=== PATIENT | female | born 1955 | race Caucasian/White ===

== ENCOUNTER → 2019-08-28 | Outpatient (CLI) | payer OTHER ==
--- NOTE | 2019-08-28 13:16 | RAD ---
EXAM: Paranasal sinuses, single view. HISTORY: Sinusitis. COMPARISON: None. FINDINGS: A single view of the paranasal sinuses is obtained. There is no sinus opacification or air-fluid level. There is no significant nasal septal deviation. IMPRESSION: No radiographic evidence of acute sinusitis. Electronically signed by: Isi Angulo MD (08/28/2019 1:13 PM) [facility]
--- NOTE | 2019-08-28 13:17 | RAD ---
EXAM: Chest, 2 views. HISTORY: Shortness of air. COMPARISON: 08/03/2019. FINDINGS: 2 views of chest are obtained. There are moderate right and small left pleural effusions. There is right middle and lower lobe compression atelectasis or consolidated infiltrate. There is postoperative change involving the right breast and axilla. There is no pneumothorax. There is a small circumscribed nodule overlying the left lower lobe, possibly due to a nipple shadow. The heart is normal in size. IMPRESSION: 1. Moderate right and small left pleural effusions with suspected right middle and lower lobe compressive atelectasis or consolidated infiltrate. 2. Small nodule overlying the left lower lobe. The absence of this finding on the prior exam and the nodule location favor artifact due to a nipple shadow. Electronically signed by: Isi Angulo MD (08/28/2019 1:15 PM) [place] [id number]
== END | disposition home or self-care (01) ==
LOC: DXRAD 11:17
PROVIDERS: ATTEND Internal Medicine
DX: J90 Pleural effusion, not elsewhere classified (principal); R91.1 Solitary pulmonary nodule; J44.9 Chronic obstructive pulmonary disease, unspecified; J01.90 Acute sinusitis, unspecified
CPT/HCPCS: 70210; 71046

== ENCOUNTER → 2019-09-17 | Outpatient (CLI) | payer OTHER ==
--- NOTE | 2019-09-17 15:41 | RAD ---
CT CHEST WO CONTRAST Indication: Pleural effusion, shortness of air, history of lymphoma and breast cancer Technique: CT imaging was performed of the , multiplanar reconstruction images submitted. One or more of the following individualized dose reduction techniques were utilized for this examination: 1. Automated exposure control 2. Adjustment of the mA and/or kV according to patient size 3. Use of iterative reconstruction technique. Comparison: None Findings: There is moderate size, mostly dependent, right pleural effusion, internal density measurements of about 7 Hounsfield units. There is some extent anteriorly near the lung bases and also near apex. There is bronchiectasis of the upper lobes bilaterally near the apices, adjacent mild consolidation extending to the pleural surface. On the left, this area of density measures about 1 cm x 3 cm in axial oblique dimensions, likely smaller on the right although difficult to characterize given the adjacent effusion. There is very small left pleural effusion. There is a small quantity of pericardial fluid.. There is fairly prominent coronary calcification. Thoracic aortic caliber is within limits, some scattered calcified plaque present. There is a precarinal node about 0.9 cm short axis dimension, considered upper limits of normal. There is a 1 cm left adrenal nodule, density measurements of adenoma -1 Hounsfield units. There has been right mastectomy. There is heterogeneity of the bones, areas of scattered sclerosis with mixed lucency such as of the sternum, also of the T4 vertebral body. There is a small lytic focus of the T8 vertebral body too small to characterize 0.5 cm. There is a small 0.2 cm left upper lobe pulmonary nodule image 51 series 2. There is 0.4 cm left lower lobe pulmonary nodule image 41 series 2. There is 0.3 cm right middle lobe nodule image 39 series 2. There is 0.5 cm right lower lobe nodule image 38 series 2. IMPRESSION: 1. There is moderate, mostly dependent right pleural effusion, minimal extent anteriorly near the apex and base. There is very small left pleural effusion. 2. There are foci of peripheral density about areas of bronchiectasis of the upper lobes near the apices bilaterally, left greater than right. Findings may be component of more chronic fibrotic change and infiltrates although 3 month follow-up or PET/CT is advised as per revised Fleischner guidelines. There are also a a few other small pulmonary nodules as stated.. 3. There is some heterogeneity of the bones most notable of the T4 vertebral body and sternum, underlying marrow replacing process such as metastatic disease not excluded. 4. There is fairly prominent coronary calcification. Electronically signed by: Hood Mays MD (09/17/2019 3:38 PM) [facility]
== END | disposition home or self-care (01) ==
LOC: CT 09:21
PROVIDERS: ATTEND Internal Medicine
DX: J91.8 Pleural effusion in other conditions classified elsewhere (principal); J47.9 Bronchiectasis, uncomplicated; R91.8 Other nonspecific abnormal finding of lung field; I25.10 Atherosclerotic heart disease of native coronary artery without angina pectoris; Z90.11 Acquired absence of right breast and nipple; Z85.3 Personal history of malignant neoplasm of breast
CPT/HCPCS: 71250

== ENCOUNTER → 2021-05-12 | Outpatient (CLI) | payer MEDICARE ==
--- NOTE | 2021-05-12 16:07 | RAD ---
Bilateral upper extremity arterial duplex ultrasound study without comparison for left upper extremit y numbness. Technique an findings: Real-time grayscale and color and spectral Doppler evaluation of the arteries of both upper extremities is performed. On the right, the subclavian artery, axillary artery, brachia l artery, radial artery, and ulnar arteries are all widely patent and demonstrate normal velocities a nd normal phasicity. There is mild calcified atherosclerosis in the subclavian artery on grayscale im aging. On the left, there is monophasic flow in the proximal subclavian artery, with significant colo r Doppler turbulence, and rapid transition to parvus tardus flow with diminished velocities in the di stal subclavian artery. This is indicative of hemodynamically significant proximal left subclavian ar adrienne stenosis. The left axillary, brachial, radial, and ulnar arteries are patent, with biphasic flow , but remain parvus tardus, with diminished velocities throughout. IMPRESSION: 1. Hemodynamically significant proximal left subclavian artery stenosis resulting in markedly reduced velocity throughout the left lower extremity. This patient could likely benefit from angiography and attempted endovascular reconstruction by an endovascular specialist. If so desired, we would be happ y to see him in our IR clinic in this regard. Referral can be made by faxing written order to [phone]. Electronically signed by: Yousuf Amin MD (05/12/2021 4:05 PM) [id number]
== END ==
LOC: US 09:46
PROVIDERS: ATTEND Internal Medicine Cardiovascular Disease
DX: I70.209 Unspecified atherosclerosis of native arteries of extremities, unspecified extremity (principal); I77.1 Stricture of artery; R20.0 Anesthesia of skin
CPT/HCPCS: 93930

== ENCOUNTER → 2021-06-21 | Outpatient (CLI) | payer MEDICARE ==
--- NOTE | 2021-06-21 14:19 | RAD ---
EXAM: Bilateral carotid duplex with waveform analysis. CLINICAL HISTORY: Left subclavian stenosis. History of neck radiation TECHNIQUE: Longitudinal and transverse sonographic images of the bilateral carotid arteries was perfo rmed utilizing grayscale, color and spectral Doppler techniques. COMPARISON: None FINDINGS: Right Carotid: Minimal plaque. Left Carotid: Minimal plaque. Vertebrals: There is complete reversal of flow in the left vertebral artery. Normal antegrade flow in the right vertebral artery Right: PSV CCA (cm/s): 180 PSV ICA (cm/s): 125.5 EDV ICA (cm/s): 27 PSV ECA (cm/s): 104 Subclavian PSV (cm/s): 285 cm/s ICA/CCA Ratio: 0.7 Left: PSV CCA (cm/s): 1:30 PSV ICA (cm/s): 103 EDV ICA (cm/s): 25 PSV ECA (cm/s): 166 Subclavian PSV (cm/s): 114 cm/s ICA/CCA Ratio: 0.8 IMPRESSION: 1. There is complete reversal of flow in the left vertebral artery. The peak systolic velocity in the left subclavian artery is 114 cm/s. 2. Elevated velocity in the right subclavian artery of 285 cm/s with normal flow in the right vertebr al artery. 2. No hemodynamically significant stenosis of the internal carotid arteries. Consensus Panel Agarwal-scale and Doppler US Criteria for Diagnosis of ICA Stenosis Degree of Stenosis (%) ICA PSV (Cm/sec) Plaque Estimate (%)* Normal <125 None <50 <125 <50 50-69 125-230 >50 >70 but < near occlusion >230 >50 Near occlusion High, low, or undetectable Visible Total occlusion Undetectable Visible, no detectable lumen *Plaque estimate (diameter reduction) with agarwal-scale and color Doppler US Degree of Stenosis (%) ICA/CCA PSV Ratio ICA EDV (cm/sec) Normal <2.0 <40 <50 <2.0 <40 50-69 2.0-4.0 40-100 >70 but < near occlusion >4.0 >100 Near occlusion Variable Variable Total occlusion Not applicable Not applicable Electronically signed by: Ronda Thompson MD (06/21/2021 2:17 PM) [id number]
== END ==
LOC: US 09:55
PROVIDERS: ATTEND Surgery Vascular Surgery
DX: I65.23 Occlusion and stenosis of bilateral carotid arteries (principal); I77.1 Stricture of artery; Z92.3 Personal history of irradiation
CPT/HCPCS: 93880